=== PATIENT | female | born 1930 | race Caucasian/White ===

== ENCOUNTER → 2016-10-18 | Outpatient (CLI) | payer MEDICARE, BC | END | disposition home or self-care (01) | LOC: GMAJ 11:21 | PROVIDERS: ATTEND Family Medicine | DX: I50.9 Heart failure, unspecified (principal) ==

== ENCOUNTER → 2016-11-04 | Outpatient (CLI) | payer MEDICARE, BC | END | disposition home or self-care (01) | LOC: GMAJ 10:51 | PROVIDERS: ATTEND Family Medicine | DX: I50.9 Heart failure, unspecified (principal) ==

== ENCOUNTER → 2016-12-07 | Outpatient (CLI) | payer MEDICARE, BC | END | disposition home or self-care (01) | LOC: GMAJ 10:29 | PROVIDERS: ATTEND Family Medicine | DX: D50.9 Iron deficiency anemia, unspecified (principal) ==

== ENCOUNTER → 2017-04-04 | Outpatient (CLI) | payer MEDICARE, BC | END | disposition home or self-care (01) | LOC: GMAJ 16:31 | PROVIDERS: ATTEND Family Medicine | DX: D50.9 Iron deficiency anemia, unspecified (principal); E03.9 Hypothyroidism, unspecified ==

== ENCOUNTER 2017-06-10 11:44 | Observation (INO) | payer MEDICARE, BC ==
[2017-06-10] MEDS ORDERED: SODIUM CHLORIDE 0.9% (FLUSH) 10 ML SYG IV PRN ×2 (12:24→19:24)
--- NOTE | 2017-06-10 12:49 | ED.PDOC ---
History of Present Illness - General Chief Complaint: Neuro Symptoms/Deficits Stated Complaint: slurred speech,facial drooping Time Seen by Provider: 06/10/17 11:52 Source: patient, family - History of Present Illness Initial Comments: PT PRESENTS TO THE ED FROM THE CLINIC FOR INTERMITTENT EPISODES OF SLURRED SPEECH ACCOMPANIED BY INCREASED SOMNOLENCE OVER THE PAST MONTH. FAMILY STATES THAT SYMPTOMS HAVE BEEN MORE PRONOUNCED OVER THE PAST 1 DAY. PT DENIES, WEAKNESS OF EXTREMITIES OR PROBLEMS WITH COGNITION. Timing/Duration: getting worse, intermittent - OVER THE PAST MONTH Severity: moderate Improving Factors: nothing Worsening Factors: nothing Associated Symptoms: malaise Allergies/Adverse Reactions: Allergies NO KNOWN ALLERGY Allergy (Verified 03/27/14 18:34) Home Medications: Ambulatory Orders Aspirin [Antoinette Low Dose] 81 mg PO DAILY 02/26/14 Calcium Carb 500Mg-Vitamin D [Oscal 500 + D] 500 mg PO DAILY 02/26/14 Metoprolol Succinate [Metoprolol Succinate ER] 200 mg PO DAILY 02/26/14 Pravastatin Sodium 80 mg PO BEDTIME 02/26/14 Pregabalin [Lyrica] 75 mg PO BID 02/26/14 Levothyroxine Sodium [Synthroid] 0.025 mg PO BEDTIME #30 tab 03/04/14 Donepezil HCl [Aricept] 10 mg PO BEDTIME 03/20/14 Amlodipine Besylate 5 mg PO DAILY 06/10/17 Ferrous Gluconate [Ferate] 27 mg PO DAILY 06/10/17 Furosemide 40 mg PO BID 06/10/17 Olmesartan Medoxomil [Benicar] 40 mg PO DAILY 06/10/17 Review of Systems - Review of Systems Constitutional: Denies: chills, fever EENTM: Denies: nose congestion, throat pain Respiratory: Denies: cough, short of breath Cardiology: Denies: chest pain, palpitations Gastrointestinal/Abdominal: Denies: diarrhea, nausea, vomiting Musculoskeletal: Denies: joint pain, joint swelling Skin: Denies: dryness, lesions Neurological: Denies: numbness, paresthesia, tingling, weakness Endocrine: States: no symptoms reported Hematologic/Lymphatic: States: no symptoms reported Past Medical History (General) - Patient Medical History Hx Seizures: No Hx Stroke: Yes Hx Dementia: Yes Hx Asthma: No Hx of COPD: No Hx Cardiac Disorders: Yes - [place]/CABG Hx Congestive Heart Failure: Yes Hx Pacemaker: No Hx Hypertension: Yes Hx Diabetes: Yes Hx Gastroesophageal Reflux: Yes Hx MRSA: No Surgical History: appendectomy, cholecystectomy, coronary bypass surgery, Hysterectomy - Vaccination History Hx Influenza Vaccination: Yes Hx Pneumococcal Vaccination: Yes - Social History Hx Tobacco Use: No Hx Alcohol Use: No Hx Substance Use: No Hx Physical Abuse: No Hx Emotional Abuse: No Family Medical History - Family History Mother Family History: Unknown Living Status: Hx Family Hypertension: Yes Hx Family Stroke: Yes Hx Cardiac Disease: Yes Physical Exam - Physical Exam General Appearance: Alert, No apparent distress, Well Developed, Well Groomed, Well Hydrated Eye Exam: bilateral normal Ears, Nose, Throat: hearing grossly normal Neck: supple, normal inspection Respiratory: lungs clear, normal breath sounds, no respiratory distress Cardiovascular/Chest: no edema, no murmur, bradycardia Gastrointestinal/Abdominal: non tender, soft Back Exam: normal inspection Extremity: non-tender, normal inspection Neurologic: alert, normal mood/affect, oriented x 3, other - MILD FLATTENING OF L NASOLABIAL FOLD Skin Exam: normal color, warm/dry Progress - Progress Progress: 06/10/17 18:30 PT RESTING COMFORTABLY ON RE-EVAL, NO CHANGE IN SPEECH PATTERN. LABS AND DIAGNOSTIC STUDIES DISCUSSED WITH PT AND FAMILY. THEY AGREE WITH PLAN TO BE ADMITTED FOR FURTHER TREATMENT. - Results/Orders Results/Orders: 06/10/17 12:24 Telemetry .ONCE Sodium Chloride 0.9% (Flush) [Saline Flush Syringe] 10 ml IV PRN PRN 06/10/17 12:25 UA [URINALYSIS] Stat 06/10/17 12:30 EKG STAT 06/10/17 14:07 Sodium Chloride 0.9% 1000ML [Ns 1000 ml] 1,000 ml IVS .QD Laboratory Results - last 24 hr 06/10/17 06/10/17 06/10/17 13:13 13:13 13:13 WBC 8.3 RBC 4.80 Hgb 14.2 Hct 42.8 MCV 89.2 MCH 29.7 MCHC 33.3 RDW 15.6 H Plt Count 178 MPV 9.3 Absolute Neuts (auto) 4.90 Absolute Lymphs (auto) 2.00 Absolute Monos (auto) 0.90 H Absolute Eos (auto) 0.40 Absolute Basos (auto) 0.10 Neutrophils % 59.0 Lymphocytes % 24.7 Monocytes % 11.1 H Eosinophils % 4.4 Basophils % 0.8 PT 10.8 INR 0.960 PTT (SP) 30.8 Sodium 137 Potassium 5.0 Chloride 105 Carbon Dioxide 22 Anion Gap 15.0 BUN 88 H Creatinine 2.72 H BUN/Creatinine Ratio 32.4 H POC Glucose Random Glucose 138 H Serum Osmolality 302.9 H Calcium 9.7 Total Bilirubin 0.5 AST 35 ALT 29 Alkaline Phosphatase 60 Creatine Kinase 75 CK-MB (CK-2) 2.2 CK-MB (CK-2) % Not Reportable Troponin I 0.03 Serum Total Protein 8.2 Albumin 4.6 Globulin 3.6 H Albumin/Globulin Ratio 1.3 06/10/17 13:13 WBC RBC Hgb Hct MCV MCH MCHC RDW Plt Count MPV Absolute Neuts (auto) Absolute Lymphs (auto) Absolute Monos (auto) Absolute Eos (auto) Absolute Basos (auto) Neutrophils % Lymphocytes % Monocytes % Eosinophils % Basophils % PT INR PTT (SP) Sodium Potassium Chloride Carbon Dioxide Anion Gap BUN Creatinine BUN/Creatinine Ratio POC Glucose 130 H Random Glucose Serum Osmolality Calcium Total Bilirubin AST ALT Alkaline Phosphatase Creatine Kinase CK-MB (CK-2) CK-MB (CK-2) % Troponin I Serum Total Protein Albumin Globulin Albumin/Globulin Ratio - EKG/XRAY/CT EKG: Prasad - 49BPM, NL INTERVALS, NL AXIS, Sinus, nonspecific ST T wave Chg - T WAVE INVERSIONS IN LATERAL LEADS, Unchanged from - PREVIOUS FROM 2013 CT: HEAD- NO ACUTE FINDINGS PER RAD CT Ordered: Yes CT Interpretation Call Back: No Departure - Departure Clinical Impression: Dehydration, Acute kidney failure, Slurred speech Time of Disposition: 14:17 Disposition: Admit Patient Condition: Fair Home Medications: Ambulatory Orders Aspirin [Antoinette Low Dose] 81 mg PO DAILY 02/26/14 Calcium Carb 500Mg-Vitamin D [Oscal 500 + D] 500 mg PO DAILY 02/26/14 Metoprolol Succinate [Metoprolol Succinate ER] 200 mg PO DAILY 02/26/14 Pravastatin Sodium 80 mg PO BEDTIME 02/26/14 Pregabalin [Lyrica] 75 mg PO BID 02/26/14 Levothyroxine Sodium [Synthroid] 0.025 mg PO BEDTIME #30 tab 03/04/14 Donepezil HCl [Aricept] 10 mg PO BEDTIME 03/20/14 Amlodipine Besylate 5 mg PO DAILY 06/10/17 Ferrous Gluconate [Ferate] 27 mg PO DAILY 06/10/17 Furosemide 40 mg PO BID 06/10/17 Olmesartan Medoxomil [Benicar] 40 mg PO DAILY 06/10/17 Decision To Admit - Decistion To Admit Decision to Admit Reason: Admit from ER Decision to Admit Date: 06/10/17 Decision to Admit Time: 14:18 - CASE DISCUSSED WITH POLI KEYES NP WHO AGREES TO ADMIT PATIENT
--- NOTE | 2017-06-10 12:51 | CT ---
EXAM DESCRIPTION: CT head without contrast CLINICAL HISTORY: Facial droop. Slurred speech. CVA. COMPARISON: 03/20/2014 TECHNIQUE: Noncontrast spiral CT of the brain. This exam was performed according to our departmental dose-optimization program, which includes automated exposure control, adjustment of the mA and/or kV according to patient size and/or use of iterative reconstruction technique FINDINGS: Extensive white matter disease bilateral cerebral hemispheres with patchy and confluent decreased density worsened since previous CT. No diagnostic acute cortical infarction No intracranial hemorrhage or mass lesion. Atherosclerotic vascular calcifications of the cavernous internal carotid arteries. A small remote lacunar infarct right cerebellar hemisphere also seen on previous study No calvarial or skull base lesion. No paranasal sinus or mastoid fluid IMPRESSION: Extensive white matter disease, consistent with chronic microvascular ischemia. CT is insensitive for early evaluation of acute stroke. If there is clinical concern for acute ischemia, an MRI may be considered. Electronically signed by: Mil Moy MD 06/10/2017 12:49 PM CDT
[2017-06-10] MEDS ORDERED: SODIUM CHLORIDE 0.9% 1000ML 1,000 ML IVS PRN (14:07)
--- NOTE | 2017-06-10 15:04 | HP ---
SUPERVISING PHYSICIAN: Bennett To MD CHIEF COMPLAINT: Slurred speech. HISTORY OF PRESENT ILLNESS: Ms. Willett is an 87 year-old female patient who presented to the Emergency Department directly from the clinic today for intermittent episodes of some slurred speech. The family reports that her symptoms including the slurred speech have lizbeth increasing over the last day, however, the patient denied any weakness or any other difficulties with cognition. The patient does note that she has been sleeping more than 12 to 14 hours a day. Laboratory studies in the Emergency Department showed that she had a decreased renal function with a creatinine of 2.72. Review of previous medical records and laboratory showed her creatinine baseline is around 1.5 to 1.8. It was also noted that she had a serum osmolality of 302. She also had a urinalysis in the clinic today and review of that record indications symptomatic bacteruria with 3 to 5 white cells, 1 to 3 RBCs and a few epithelials. TSH is also noted to be elevated at 6.86. Radiographic studies included a head CT without contrast and per radiology interpretation showed extensive white matter disease consistent with chronic macrovascular ischemia. Dr. Plascencia, Emergency Room physician, requested the patient be placed in observation for dehydration and close neurological monitoring. No significant neurological deficits were elicited or noted on assessment in the Emergency Department per Dr. Plascencia initially. It was of note that she initially hydrated with renal function being increased compared to previous days. There was concern that possibly the is significantly dehydrated and showing a falsely elevated sodium and possibly is symptomatic from hyponatremia. Also, there was concern that the patient was again having TIAs in the past and warrants close observation at for neurological assessment as well. She was started on IV fluids inhalation therapy with normal saline and placed in observation on the medical/surgical floor in stable condition. PAST MEDICAL HISTORY: 1. Hypertension. 2. Hyperlipidemia. 3. Previous myocardial infarction in 1999. 4. Carotid artery stenosis but no recent carotid study noted for review. 5. Coronary artery disease. 6. Peripheral vascular disease. 6. Type 2 diabetes mellitus. 7. Alzheimer's disease. 8. 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 9. 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 10. Congestive heart failure with diastolic dysfunction with last echocardiogram noted to be on June 03, 2017 with ejection fraction of 55%, again with a grade 2 diastolic dysfunction. PAST SURGICAL HISTORY: 1. Appendectomy. 2. Coronary artery bypass graft. 3. Cholecystectomy. 4. Coronary artery stent placement. 5. Hysterectomy. 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 CURRENT MEDICATIONS: 1. Lyrica 75 mg twice a day. 2. Pravastatin 80 mg at bedtime. 3. Benicar 40 mg daily. 4. Metoprolol Succinate extended release 200 mg daily. 5. Synthroid 0.025 mg at bedtime. 6. Lasix 40 mg twice a day. 7. Ferate 27 mg daily. 8. Aricept 10 mg at bedtime. 9. Os-Bruno 500 plus D daily. 10. Aspirin 81 mg daily. 11. Amlodipine 5 mg daily. ALLERGIES: NO KNOWN DRUG ALLERGIES. FAMILY HISTORY: Father secondary to cerebrovascular accident. Mother with myocardial infarction. SOCIAL HISTORY: The patient is retired. She lives in [place] with her . 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 She has no history of tobacco, drug use or alcohol use. REVIEW OF SYSTEMS: CONSTITUTIONAL: Positive for fatigue. She notes that she wants to sleep all day and falls asleep easily while eating. She denies any chills, fever or intentional weight loss. HEENT: Denies any nasal congestion, sore throat or headaches. RESPIRATORY: Negative for cough, dyspnea. CARDIOVASCULAR: Has a history of previous TIAs. Denies chest pains, palpitations or syncopal episodes. GASTROINTESTINAL: Denies constipation, diarrhea or abdominal pain or nausea or vomiting. GENITOURINARY: Denies dysuria or hematuria or any other urinary symptoms. NEUROLOGICAL: Positive for delayed speech with some slurred, patient states she has noted in the past, yesterday she had some face drooping when she smiles but denies any ataxia or headaches. PHYSICAL EXAMINATION: VITAL SIGNS: In the Emergency Room temperature was 96.3, pulse 51, blood pressure initially 98/56, however, prior to admission to the medical/surgical floor, blood pressure went up to 208/80. Saturation 93% on room air with respirations 16. Admission weight 60.5 kg. GENERAL: The patient appears to be in no acute distress, well-groomed but does appear tired and somewhat looks dehydrated. HEENT: Tympanic membranes clear bilateral. Oropharynx is pink with mucous membranes being dry with no lesions. NECK: Non-tender, full range of motion with no jugular venous distention. CHEST: Lungs clear to auscultation without any rhonchi, rales, or wheezes. CARDIOVASCULAR: Regular rate and rhythm without appreciable murmurs, rubs, or gallops. Showed a bradycardic rhythm on the monitor. ABDOMEN: Soft, non-tender, positive bowel sounds. EXTREMITIES: No cyanosis, clubbing, or edema. NEUROLOGIC: She is alert and oriented x 3. Facial features were generally symmetrical but there was some [id number] mild flattening of the left nasolabial fold, no obvious drooping. Extraocular movements were within normal limits. No nystagmus was noted. There was no notable ataxia. [id number] was within normal limits. LABORATORY: CBC showed a white count of 8,300 with hemoglobin of 14.2, hematocrit 42.8, platelet count 178,000, differential shows to be within normal limits. Coagulation studies showed left PT/PTT. Chemistries showed normal electrolytes with sodium of 137, potassium 5.0, BUN 88, creatinine 2.72, glucose 130 with osmolality of 302. Liver functions showed to be within normal limits. Calcium within normal limits.Troponin 0.03. Urinalysis on admission was pending but review of medical records from laboratory studies performed today in the clinic showed that she had a urinalysis completed there that showed trace of blood, trace of leukocytes with microscopic showing 3 to 5 WBC, 1 to 3 RBC with a few epithelials with 2+ bacteria. RADIOLOGY: Studies completed included a CT of the head without contrast and per radiology interpretation was extensive white matter disease consistent with chronic microvascular ischemia. EKG showed a bradycardic rhythm of [address]-wave changes, with some T-wave inversions noted in lateral leads unchanged from previous EKG in 2014. ASSESSMENT: 1. Dehydration secondary to poor oral intake. 2. Acute kidney failure as noted with elevated creatinine, BUN, possibly secondary' to prerenal azotemia from underlying dehydration also contributing to some of her slurred speech. 3. Urinary tract infection possibly exacerbated the slurred speech from an infectious encephalopathy. 4. History of previous TIA with carotid artery disease and carotid stenosis with the patient having some slurred speech prior to arrival with concern for a possible additional TIA event with the patient the patient on aspirin , statin. 5. Hypertension. 6. Diabetes mellitus type 2. 7. Hypothyroidism with elevated TSH on thyroid supplementation possibly contributing to some of her underlying clearing speech and increased hypersomnia. 8. Urinary tract infection with urinary culture pending. PLAN: The patient will be placed in observation tonight. Initiation of IV fluids in the Emergency Room to be continued on the Floor in efforts to improve renal function and fluid status. She will be on sliding scale as per protocol. She will be on DVT prophylaxis per protocol. Will resume her verifications once they have been updated and verified. Will start her on Rocephin one gram every 24 hours from urinary tract infection awaiting urine culture results. We did check on the specimen from the clinic, this was not cultured, therefore will have to resubmit a urine after admission and follow those culture results awaiting treatment empirically and further target antibiotic therapy once results are available. Anticipate length of stay to be 1 to 2 days, hopefully will be able to discharge tomorrow as she improves on her hydration status. Again, there are concerns that she could possibly have some hyponatremia as she is hemoconcentrated from dehydration. Will plan to utilize normal saline until repeat laboratory studies in the morning to include CBC and BMP. She will have every 4 hours neurological checks. Again, will anticipate hopefully discharge tomorrow and once discharged, she will need to followup in the outpatient setting on Tuesday for MRI and further study of her carotids. Until discharge, we will continue to monitor closely and treat appropriately. #[id number] [facility]
[2017-06-10] MEDS ORDERED: cloNIDine HCL 0.1 MG TAB PO ONE (18:36)
[2017-06-10] MEDS: SODIUM CHLORIDE 0.9% 1000ML 1,000 ML IVS PRN (19:26)
[2017-06-10] MEDS ORDERED: IV SET AND CAP CHANGE INJ INJ SCH (19:30)
[2017-06-10] MEDS ORDERED: ENOXAPARIN SODIUM 40 MG/0.4 ML SYG SUBCU SCH (19:30)
[2017-06-10] MEDS: PREGABALIN 75 MG CAP PO SCH (21:48)
[2017-06-10] MEDS: DONEPEZIL HCL 5 MG TAB PO SCH (21:48)
--- NOTE | 2017-06-10 22:43 | PCM.CORE ---
Physician DVT/VTE - Nurse DVT Assessment & Total Each Risk Factor Represents 3 Points: Age over 75 years, Family Hx thrombosis, Medical PT with Hx of MD, CHF, Severe infection/sepsis DVT Assessment Score: 9 - 5 or more Very High Risk Treatments: Early Ambulation *, Sequential Compression Device Pharmacological: Enoxaparin 40mg SQ Daily
[2017-06-10] MEDS ORDERED: SODIUM CHL 0.9% 50ML MIN-BAG+ 50 ML IVPB ONE (23:16)
[2017-06-10] MEDS ORDERED: cefTRIAXone SODIUM 1 GM VIAL ONE (23:16)
[2017-06-10] MEDS ORDERED: INSULIN LISPRO 100 UNITS/ML PEN SUBCU ONE (23:44)
[2017-06-10] MEDS: cefTRIAXone SODIUM 1 GM in SODIUM CHL 0.9% 50ML MIN-BAG+ 50 ML IVPB SCH (23:55)
[2017-06-11] MEDS: SODIUM CHLORIDE 0.9% 1000ML 1,000 ML IVS PRN ×2 (05:06→17:43)
[2017-06-11] MEDS ORDERED: METOPROLOL SUCCINATE XL 100 MG TAB PO ONE (07:36)
[2017-06-11] MEDS ORDERED: FERROUS GLUCONATE 325 MG TAB PO SCH (08:00)
[2017-06-11] MEDS ORDERED: VALSARTAN 80 MG TAB ONE (08:12)
[2017-06-11] MEDS: METOPROLOL SUCCINATE XL 100 MG TAB PO SCH (08:15)
[2017-06-11] MEDS: amLODIPine BESYLATE 5 MG TAB PO SCH (08:15)
[2017-06-11] MEDS: CALCIUM CARBONATE-VITAMIN D 500 MG TAB PO SCH (08:15)
[2017-06-11] MEDS: ASPIRIN EC 81 MG TAB PO SCH (08:15)
[2017-06-11] MEDS: PREGABALIN 75 MG CAP PO SCH ×2 (08:15→20:53)
[2017-06-11] MEDS: VALSARTAN 80 MG TAB PO SCH (08:19)
[2017-06-11] MEDS: FERROUS GLUCONATE 325 MG TAB PO SCH (08:20)
[2017-06-11] MEDS ORDERED: SODIUM CHL 0.9% 50ML MIN-BAG+ 50 ML IVPB ONE (19:46)
[2017-06-11] MEDS ORDERED: ENOXAPARIN SODIUM 40 MG/0.4 ML SYG SUBCU ONE (19:46)
[2017-06-11] MEDS ORDERED: LEVOTHYROXINE SODIUM 0.025 MG TAB ONE (19:46)
[2017-06-11] MEDS ORDERED: cefTRIAXone SODIUM 1 GM VIAL ONE (19:46)
[2017-06-11] MEDS ORDERED: PRAVASTATIN SODIUM 20 MG TAB ONE (19:46)
[2017-06-11] MEDS: DONEPEZIL HCL 5 MG TAB PO SCH (20:52)
[2017-06-11] MEDS ORDERED: ENOXAPARIN SODIUM 40 MG/0.4 ML SYG SUBCU SCH (21:00)
[2017-06-11] MEDS ORDERED: PRAVASTATIN SODIUM 20 MG TAB PO SCH (21:00)
[2017-06-11] MEDS ORDERED: LEVOTHYROXINE SODIUM 0.025 MG TAB PO SCH (21:00)
[2017-06-11] MEDS: cefTRIAXone SODIUM 1 GM in SODIUM CHL 0.9% 50ML MIN-BAG+ 50 ML IVPB SCH (23:04)
[2017-06-12] MEDS: SODIUM CHLORIDE 0.9% 1000ML 1,000 ML IVS PRN (06:15)
[2017-06-12] MEDS ORDERED: SODIUM CHLORIDE 0.45% 1000ML 1,000 ML IVS PRN (07:34)
[2017-06-12] MEDS: CALCIUM CARBONATE-VITAMIN D 500 MG TAB PO SCH (07:59)
[2017-06-12] MEDS: FERROUS GLUCONATE 325 MG TAB PO SCH (08:00)
[2017-06-12] MEDS: amLODIPine BESYLATE 5 MG TAB PO SCH (08:35)
[2017-06-12] MEDS: PREGABALIN 75 MG CAP PO SCH (08:35)
[2017-06-12] MEDS: ASPIRIN EC 81 MG TAB PO SCH (08:35)
[2017-06-12] MEDS: VALSARTAN 80 MG TAB PO SCH (08:36)
[2017-06-12] MEDS: METOPROLOL SUCCINATE XL 100 MG TAB PO SCH (08:36)
[2017-06-12] MEDS ORDERED: SODIUM CHL 0.9% 50ML MIN-BAG+ 50 ML IVPB ONE (10:29)
[2017-06-12] MEDS ORDERED: cefTRIAXone SODIUM 1 GM VIAL ONE (10:30)
[2017-06-12] MEDS: cefTRIAXone SODIUM 1 GM in SODIUM CHL 0.9% 50ML MIN-BAG+ 50 ML IVPB SCH (10:40)
[2017-06-12 11:27] VITALS: BP 181/64; TEMP 97.2; O2SAT 94
== END 2017-06-12 11:45 | disposition home or self-care (01) ==
LOC: ER 11:44 → MS 15:02 → UNDOADMOB 15:02
PROVIDERS: ADMIT Nurse Practitioner Family; ATTEND Nurse Practitioner Family
DX: E86.0 Dehydration (principal); N17.9 Acute kidney failure, unspecified; N39.0 Urinary tract infection, site not specified; R47.81 Slurred speech; I65.29 Occlusion and stenosis of unspecified carotid artery; I11.0 Hypertensive heart disease with heart failure; I50.32 Chronic diastolic (congestive) heart failure; E11.9 Type 2 diabetes mellitus without complications; E03.9 Hypothyroidism, unspecified; G30.9 Alzheimer's disease, unspecified; F02.80 Dementia in other diseases classified elsewhere, unspecified severity, without behavioral disturbance, psychotic disturbance, mood disturbance, and anxiety; I25.10 Atherosclerotic heart disease of native coronary artery without angina pectoris; E78.5 Hyperlipidemia, unspecified; I25.2 Old myocardial infarction; Z86.73 Personal history of transient ischemic attack (TIA), and cerebral infarction without residual deficits; Z79.82 Long term (current) use of aspirin; Z79.899 Other long term (current) drug therapy; Z95.1 Presence of aortocoronary bypass graft; Z95.5 Presence of coronary angioplasty implant and graft; Z90.49 Acquired absence of other specified parts of digestive tract; Z90.710 Acquired absence of both cervix and uterus; Z82.3 Family history of stroke; Z82.49 Family history of ischemic heart disease and other diseases of the circulatory system
CPT/HCPCS: 36415 ×3; 70450; 80048 ×2; 80053; 80061; 81001; 82550; 82553; 82948; 83036; 83735; 84443; 84484; 85025 ×3; 85610; 85730; 93005; 94760 ×8; 96365; 96366; 96372 ×2; 96376; 97116; 97162; 99284; G0378; G8978; G8979; G8980; J0696 ×3; J1650 ×2; J7030 ×4; J7050 ×3

== ENCOUNTER → 2017-06-15 | Outpatient (CLI) | payer MEDICARE, BC ==
--- NOTE | 2017-06-15 16:54 | MRI ---
EXAM DATE: 06/15/2017 8:12 AM CDT. PROCEDURE: MR BRAIN WITHOUT IV CONTRAST. INDICATION: MIXED RECEPTIVE, EXPRESSIVE LANGUAGE DISORDER. COMPARISON: CT head 06/10/2017. TECHNIQUE: Multiplanar multisequence images of the brain were acquired without the administration of intravenous contrast. FINDINGS: Small curvilinear band of restricted diffusion within the right frontal lobe periventricular white matter compatible with acute infarct. No acute intracranial hemorrhage. No mass, mass effect, or midline shift. Confluent subcortical, periventricular, deep white matter T2/FLAIR hyperintensities compatible with chronic microvascular angiopathy. Old lacunar infarcts of the bilateral cerebellar hemispheres. Mild generalized brain volume loss. No hydrocephalus. Internal carotid and vertebrobasilar flow voids are identified. Sequela bilateral cataract surgery. Mild mucosal thickening scattered throughout the paranasal sinuses. Small right mastoid effusion or inflammation. Unremarkable calvarium. IMPRESSION: Small acute infarct of the right frontal reyes radiata. Advanced chronic microvascular angiopathy. Mild generalized brain volume loss. Critical findings discussed with Emilia Upton RN, by Bennett Andrade MD at 06/15/2017 4:52 PM CDT by phone. Electronically signed by: Bennett Andrade MD 06/15/2017 4:53 PM CDT
== END | disposition home or self-care (01) ==
LOC: MRI 09:36
PROVIDERS: ATTEND Family Medicine
DX: F80.2 Mixed receptive-expressive language disorder (principal)

== ENCOUNTER 2018-08-19 14:01 | Emergency (ER) | payer MEDICARE, BC ==
[2018-08-19] MEDS ORDERED: NEOMYCIN-BACITRACIN-POLYMYXIN 0.9 GM UD TOP ONE (14:22)
[2018-08-19 14:23] VITALS: TEMP 97.6
--- NOTE | 2018-08-19 14:42 | ED.PDOC ---
History of Present Illness - General Chief Complaint: Trauma Stated Complaint: s/p fall Time Seen by Provider: 08/19/18 14:34 Source: patient, family - Exam Limitations: no limitations - History of Present Illness Initial Comments: Ibeth Willett 88 y/o female brought by family after she slipped and fell at [employer] restaurant head hit the table top and with bleeding noted on the left side of head.Initially EMS was about to pick her up then declined wants to finish eating her pizza.But later on want to go home apply ointment but was persuaded to come to ER to get checked.No LOC,no N/V,no blurry vision,no neck pain ,no headaches,dizziness or other pain anywhere else.Remembers incident.She was noted to be walking w/o assistance on arrival at ER. Occurred: just prior to arrival Severity: moderate Pain Location: none Method of Injury: fall Improving Factors: nothing Worsening Factors: nothing Loss of Consciousness: no loss of consciousness Associated Symptoms (Fall): denies symptoms Allergies/Adverse Reactions: Allergies NO KNOWN ALLERGY Allergy (Verified 03/27/14 18:34) Home Medications: Ambulatory Orders Aspirin [Antoinette Low Dose] 81 mg PO DAILY 02/26/14 Calcium Carb 500Mg-Vitamin D [Oscal 500 + D] 500 mg PO DAILY 02/26/14 Metoprolol Succinate [Metoprolol Succinate ER] 200 mg PO DAILY 02/26/14 Pravastatin Sodium 80 mg PO BEDTIME 02/26/14 Pregabalin [Lyrica] 75 mg PO BID 02/26/14 Levothyroxine Sodium [Synthroid] 0.025 mg PO BEDTIME #30 tab 03/04/14 Donepezil HCl [Aricept] 10 mg PO BEDTIME 03/20/14 Amlodipine Besylate 5 mg PO DAILY 06/10/17 Ferrous Gluconate [Ferate] 27 mg PO DAILY 06/10/17 Olmesartan Medoxomil [Benicar] 40 mg PO DAILY 06/10/17 Ciprofloxacin HCl 250 mg PO BID #3 tab 06/12/17 Furosemide 40 mg PO BID #0 06/12/17 Review of Systems - Review of Systems Skin: States: see HPI All other Systems: Reviewed and Negative, No Change from Baseline Past Medical History (General) - Patient Medical History Hx Seizures: No Hx Stroke: Yes Hx Dementia: Yes Hx Asthma: No Hx of COPD: No Hx Cardiac Disorders: Yes - [place]/CABG Hx Congestive Heart Failure: Yes Hx Pacemaker: No Hx Hypertension: Yes Hx Diabetes: Yes Hx Gastroesophageal Reflux: Yes Hx MRSA: No Surgical History: coronary bypass surgery - Vaccination History Hx Tetanus, Diphtheria Vaccination: - UNKNOWN Hx Influenza Vaccination: Yes Hx Pneumococcal Vaccination: Yes - Social History Hx Tobacco Use: No Hx Alcohol Use: No Hx Substance Use: No Hx Physical Abuse: No Hx Emotional Abuse: No - Activities of Daily Living Grooming Ability: Independent Eating (Feeding) Ability: Independent Toileting Ability: Independent Family Medical History - Family History Mother Family History: Unknown Living Status: Hx Family Hypertension: Yes Hx Family Stroke: Yes Hx Cardiac Disease: Yes Physical Exam - Physical Exam General Appearance: Alert, Comfortable, No apparent distress Head Injury: other - scalp laceration left parieto occipital area Eye Exam: left other - pterygium left eye, bilateral normal ENT Exam: hearing grossly normal, no evidence of ENT injury, no dental injury Neck Exam: non-tender, full range of motion, normal alignment, normal inspection Cardiovascular/Respiratory: regular rate, rhythm, no M/R/G, normal peripheral pulses Gastrointestinal/Abdominal: non tender, soft, no organomegaly Back Exam: no CVA tenderness, no vertebral tenderness Extremity Exam: no evidence of injury, non-tender, no pedal edema Neurologic: alert, oriented x 3, other - speech fluent Skin Exam: normal color, warm/dry - [place] Coma Score Best Eye Response ([place]): (4) open spontaneously Best Verbal Response ([place]): (5) oriented Best Motor Response ([place]): (6) obeys commands [place] Total: 15 Progress - Progress Progress: 08/19/18 14:46 Vital Signs - 8 hr 08/19/18 14:20 Temperature 97.6 F Pulse Rate [ 107 H Right Brachial] Respiratory 20 Rate Blood Pressure 213/98 [Right Arm] O2 Sat by Pulse 92 L Oximetry Procedures - Laceration/Wound Repair Head Wound Length (cm): 2.5 - scalp-blleding noted Wound's Depth, Shape: superficial, linear Wound Explored: no foreign body removed Irrigated w/ Saline (cc's): 30 Wound Repaired With: daniella Number of Sutures: 5 Layer Closure?: No Departure - Departure Clinical Impression: Fall against object Laceration of scalp Qualifiers: Encounter type: initial encounter Qualified Code(s): S01.01XA - Laceration without foreign body of scalp, initial encounter Hypertension Qualifiers: Hypertension type: unspecified Qualified Code(s): I10 - Essential (primary) hypertension Time of Disposition: 14:49 Disposition: Discharge to Home or Self Care Condition: Fair Departure Forms: ED Discharge - Pt. Copy, Patient Portal Self Enrollment Instructions: Laceration Repair With [place] (DC), Minor Head Injury (DC) Referrals: Bennett To MD [Primary Care Provider] - 1-2 Weeks Home Medications: Ambulatory Orders Aspirin [Antoinette Low Dose] 81 mg PO DAILY 02/26/14 Calcium Carb 500Mg-Vitamin D [Oscal 500 + D] 500 mg PO DAILY 02/26/14 Metoprolol Succinate [Metoprolol Succinate ER] 200 mg PO DAILY 02/26/14 Pravastatin Sodium 80 mg PO BEDTIME 02/26/14 Pregabalin [Lyrica] 75 mg PO BID 02/26/14 Levothyroxine Sodium [Synthroid] 0.025 mg PO BEDTIME #30 tab 03/04/14 Donepezil HCl [Aricept] 10 mg PO BEDTIME 03/20/14 Amlodipine Besylate 5 mg PO DAILY 06/10/17 Ferrous Gluconate [Ferate] 27 mg PO DAILY 06/10/17 Olmesartan Medoxomil [Benicar] 40 mg PO DAILY 06/10/17 Ciprofloxacin HCl 250 mg PO BID #3 tab 06/12/17 Furosemide 40 mg PO BID #0 06/12/17 Additional Instructions: May take Tylenol 500 mg every 6 hours for pain;Return to ER as needed;Removal of daniella 24 Aug 2018 [facility]
[2018-08-19] MEDS ORDERED: cloNIDine HCL 0.1 MG TAB PO ONE (14:44)
[2018-08-19 15:22] VITALS: BP 186/95; O2SAT 93
== END 2018-08-19 15:23 | disposition home or self-care (01) ==
LOC: ER 14:01
DX: S01.01XA Laceration without foreign body of scalp, initial encounter (principal); I11.0 Hypertensive heart disease with heart failure; I50.9 Heart failure, unspecified; F03.90 Unspecified dementia, unspecified severity, without behavioral disturbance, psychotic disturbance, mood disturbance, and anxiety; I25.2 Old myocardial infarction; E11.9 Type 2 diabetes mellitus without complications; K21.9 Gastro-esophageal reflux disease without esophagitis; W01.198A Fall on same level from slipping, tripping and stumbling with subsequent striking against other object, initial encounter; Y92.511 Restaurant or cafe as the place of occurrence of the external cause; Z95.1 Presence of aortocoronary bypass graft; Z79.899 Other long term (current) drug therapy; Z79.82 Long term (current) use of aspirin

== ENCOUNTER → 2019-03-16 | Outpatient (CLI) | payer MEDICARE, BC | LOC: BFHOS 15:22 | PROVIDERS: ATTEND Family Medicine | DX: R50.9 Fever, unspecified (principal); R30.0 Dysuria ==

== ENCOUNTER → 2019-03-19 | Outpatient (CLI) | payer MEDICARE, BC ==
--- NOTE | 2019-03-20 12:18 | US ---
EXAM DESCRIPTION: Venous,Lower Extremity LT: ULTRASOUND. CLINICAL HISTORY: Possible DVT COMPARISON: None Available. TECHNIQUE: Mims-scale and doppler sonographic evaluation of the deep venous system of the left lower extremity. FINDINGS: Doppler evaluation shows normal color flow and normal phasicity and augmentation of the left common femoral vein, femoral vein, popliteal vein, greater saphenous vein, peroneal, and posterior tibial vein. The left lower extremity deep veins were completely compressible; normal occlusion with transducer pressure. Mims-scale survey showed no echogenic thrombus within these veins. IMPRESSION: 1. Duplex ultrasound evaluation of the left lower extremity deep venous system showing no evidence of thrombosis. Electronically signed by: Woody Suarez MD 03/20/2019 12:16 PM CDT
== END ==
LOC: US 11:03
PROVIDERS: ATTEND Family Medicine
DX: M79.662 Pain in left lower leg (principal); I13.0 Hypertensive heart and chronic kidney disease with heart failure and stage 1 through stage 4 chronic kidney disease, or unspecified chronic kidney disease; N18.9 Chronic kidney disease, unspecified

== ENCOUNTER 2020-09-10 18:22 | Inpatient (IN) | payer MEDICARE, BC ==
--- NOTE | 2020-09-10 18:41 | ED.PDOC ---
History of Present Illness - General Chief Complaint: Respiratory Problem Time Seen by Provider: 09/10/20 18:40 - History of Present Illness Initial Comments: 89-year-old female on hospice with DNR in place presents with daughter to ED complaining of several days of progressing fatigue and diarrhea. Daughter states patient tested positive at home for COVID-19 today. Patient was instructed to come to ED by her PCP for evaluation for admission and remdesivir. Patient denies any chest pain, nausea/vomiting, headache, body aches, and/or acute changes in urination. Associated cough and intermittent dyspnea. Denies history of similar symptoms. Denies alleviating/aggravating factors. No other signs, symptoms, complaints at this time. Daughter also notifies that within the past week or so patient has had a period where she had some left facial droop but is since resolved. Due to patient being on hospice and DNR there is no need for further evaluation for potential stroke as no intervention would be performed. Allergies/Adverse Reactions: Allergies NO KNOWN ALLERGY Allergy (Verified 03/27/14 18:34) Home Medications: Ambulatory Orders Aspirin [Antoinette Low Dose] 81 mg PO DAILY 02/26/14 Calcium Carb 500Mg-Vitamin D [Oscal 500 + D] 500 mg PO DAILY 02/26/14 Metoprolol Succinate [Metoprolol Succinate ER] 200 mg PO DAILY 02/26/14 Pravastatin Sodium 80 mg PO BEDTIME 02/26/14 Pregabalin [Lyrica] 75 mg PO BID 02/26/14 Levothyroxine Sodium [Synthroid] 0.025 mg PO BEDTIME #30 tab 03/04/14 Donepezil HCl [Aricept] 10 mg PO BEDTIME 03/20/14 Amlodipine Besylate 5 mg PO DAILY 06/10/17 Ferrous Gluconate [Ferate] 27 mg PO DAILY 06/10/17 Olmesartan Medoxomil [Benicar] 40 mg PO DAILY 06/10/17 Ciprofloxacin HCl [Ciprofloxacin Hydrochlori] 250 mg PO BID #3 tab 06/12/17 Furosemide 40 mg PO BID #0 06/12/17 Review of Systems - Review of Systems Constitutional: Denies: chills, fever EENTM: Denies: nose congestion, throat pain Respiratory: States: cough, short of breath Cardiology: Denies: chest pain, edema Gastrointestinal/Abdominal: States: diarrhea. Denies: abdominal pain, constipation, nausea, vomiting Genitourinary: Denies: dysuria, frequency Musculoskeletal: Denies: muscle pain, neck pain Skin: Denies: change in color, rash Neurological: Denies: headache, weakness Hematologic/Lymphatic: Denies: easy bruising Past Medical History (General) - Patient Medical History Hx Seizures: No Hx Stroke: Yes Hx Dementia: Yes Hx Asthma: No Hx of COPD: No Hx Cardiac Disorders: Yes - PR/CABG Hx Congestive Heart Failure: Yes Hx Pacemaker: No Hx Hypertension: Yes Hx Diabetes: Yes Hx Gastroesophageal Reflux: Yes Hx MRSA: No - Vaccination History Hx Tetanus, Diphtheria Vaccination: - UNKNOWN Hx Influenza Vaccination: Yes Hx Pneumococcal Vaccination: Yes - Social History Hx Tobacco Use: No Hx Alcohol Use: No Hx Substance Use: No Hx Physical Abuse: No Hx Emotional Abuse: No Family Medical History - Family History Mother Family History: Unknown Living Status: Hx Family Hypertension: Yes Hx Family Stroke: Yes Hx Cardiac Disease: Yes Physical Exam - Physical Exam General Appearance: Alert, Comfortable, No apparent distress Eye Exam: bilateral normal, bilateral other - no scleral icterus Ears, Nose, Throat: normal ENT inspection Neck: supple, normal inspection Respiratory: respiratory distress, crackles, rales, other - hypoxic on room air, no tachypnea, no accessory muscle use Cardiovascular/Chest: regular rate, rhythm, no edema, no JVD, no murmur Gastrointestinal/Abdominal: normal bowel sounds, non tender, soft Back Exam: no CVA tenderness Extremity: normal inspection, no pedal edema Neurologic: alert, normal mood/affect, other - no facial droop, oriented at baseline Skin Exam: normal color, warm/dry, other - no rash, no pallor, no central cyanosis noted Progress - Progress Progress: Misael Adams DO Emergency Medicine Physician [facility][id number] Appropriate PPE of surgical mask, gown, gloves, and eye protection (if encounter >5 minutes) utilized with every patient encounter; in accordance with hospital policy. Presents for COVID 19 pneumonia with acute respiratory failure and hypoxia. I will perform imaging, labs, ekg, provide appropriate pharmacotherapy, and continue to monitor/reassess. Dispo will depend on imaging, EKG, lab results and overall course in ED; however, admission is expected at PCP's request. Rechecked pt with family member at bedside. NAD, VSS, and stable on supplemental oxygen. I have discussed radiology/EKG/lab results, my clinical impression, and diagnosis. I have discussed need for admission for further management and daughter agrees. Pt and family member voice understanding, agree with plan, and all questions answered. 1956 Consulted with hospitalist Herrera Carr, and discussed patient's case in ED along with current findings. He will discuss case with patient's PCP for admission. 2011 Hospitalist has returned call and accepts patient for admission after discussing case with patient's PCP. - Results/Orders Results/Orders: @1919:, Junctional rhythm @53, normal axis, QTC 506, QRS within normal limits, no ST elevations, nonspecific ST-T wave changes. No STEMI. 09/10/20 18:49 IV Care:Saline Lock per Protoc QSHIFT IV:Start .ONCE 09/10/20 19:00 EKG STAT 09/10/20 19:30 EKG STAT 09/10/20 19:52 ED Intent to Admit Routine Laboratory Results - last 24 hr 09/10/20 09/10/20 09/10/20 19:00 19:00 19:00 WBC 4.8 RBC 4.28 Hgb 12.1 Hct 37.0 MCV 86.3 MCH 28.2 MCHC 32.7 L RDW 14.2 Plt Count 217 MPV 7.8 Absolute Neuts (auto) 2.80 Absolute Lymphs (auto) 1.40 Absolute Monos (auto) 0.60 Absolute Eos (auto) 0.00 Absolute Basos (auto) 0.10 Neutrophils % 57.8 Lymphocytes % 28.9 Monocytes % 11.4 H Eosinophils % 0.8 L Basophils % 1.1 D-Dimer, Quantitative 890.0 H* Sodium 131 L Potassium 4.9 Chloride 101 Carbon Dioxide 18 L Anion Gap 16.9 BUN 75 H Creatinine 3.35 H BUN/Creatinine Ratio 22.4 H Random Glucose 110 H Serum Osmolality 285.6 Calcium 8.4 Total Bilirubin 0.8 AST 22 ALT 11 Alkaline Phosphatase 61 Serum Total Protein 6.9 Albumin 3.5 Globulin 3.4 Albumin/Globulin Ratio 1.0 L EXAM: XR Chest, 1 View CLINICAL HISTORY: SOB TECHNIQUE: Frontal view of the chest. COMPARISON: 03/20/2014 FINDINGS: Lungs: Bilateral interstitial infiltrates present with mild superimposed patchy airspace consolidation in both lower lung zones. Pleural space: No pneumothorax. No pleural effusion. Heart: Stable cardiac shadow. Mediastinum: No abnormality noted. Bones/joints: No osseous destruction or sclerosis noted. IMPRESSION: Bilateral interstitial and mild patchy airspace disease. Consider pneumonia including viral etiology and alveolar edema. Electronically signed by: Fiorella Linares MD 09/10/2020 8:42 PM MYSQL DATABASE DEVELOPER Vital Signs - 24 hr 09/10/20 09/10/20 09/10/20 19:09 20:00 21:00 Temperature 98.0 F Pulse Rate [ 53 L 59 L 55 L left brachial] Respiratory 16 16 16 Rate Blood Pressure 193/66 190/76 171/55 [right brachial ] O2 Sat by Pulse 85 L Oximetry 09/10/20 22:00 Temperature 98.2 F Pulse Rate [ 60 left brachial] Respiratory 16 Rate Blood Pressure 187/79 [right brachial ] O2 Sat by Pulse 96 Oximetry Departure - Departure Clinical Impression: Acute respiratory failure with hypoxia, Hospice care, Pneumonia due to COVID-19 virus, DNR (do not resuscitate) ARF (acute renal failure) Qualifiers: Acute renal failure type: unspecified Qualified Code(s): N17.9 - Acute kidney failure, unspecified Time of Disposition: 19:51 Disposition: Admit Patient Condition: Poor Home Medications: Ambulatory Orders Aspirin [Antoinette Low Dose] 81 mg PO DAILY 02/26/14 Calcium Carb 500Mg-Vitamin D [Oscal 500 + D] 500 mg PO DAILY 02/26/14 Metoprolol Succinate [Metoprolol Succinate ER] 200 mg PO DAILY 02/26/14 Pravastatin Sodium 80 mg PO BEDTIME 02/26/14 Pregabalin [Lyrica] 75 mg PO BID 02/26/14 Levothyroxine Sodium [Synthroid] 0.025 mg PO BEDTIME #30 tab 03/04/14 Donepezil HCl [Aricept] 10 mg PO BEDTIME 03/20/14 Amlodipine Besylate 5 mg PO DAILY 06/10/17 Ferrous Gluconate [Ferate] 27 mg PO DAILY 06/10/17 Olmesartan Medoxomil [Benicar] 40 mg PO DAILY 06/10/17 Ciprofloxacin HCl [Ciprofloxacin Hydrochlori] 250 mg PO BID #3 tab 06/12/17 Furosemide 40 mg PO BID #0 06/12/17 Decision To Admit - Decistion To Admit Decision to Admit Reason: Admit from ER Decision to Admit Date: 09/10/20 Decision to Admit Time: 19:51
[2020-09-10] MEDS ORDERED: DEXAMETHASONE INJ 10 MG/ML VIAL IV ONE (18:50)
--- NOTE | 2020-09-10 20:44 | RAD ---
EXAM: XR Chest, 1 View CLINICAL HISTORY: SOB TECHNIQUE: Frontal view of the chest. COMPARISON: 03/20/2014 FINDINGS: Lungs: Bilateral interstitial infiltrates present with mild superimposed patchy airspace consolidation in both lower lung zones. Pleural space: No pneumothorax. No pleural effusion. Heart: Stable cardiac shadow. Mediastinum: No abnormality noted. Bones/joints: No osseous destruction or sclerosis noted. IMPRESSION: Bilateral interstitial and mild patchy airspace disease. Consider pneumonia including viral etiology and alveolar edema. Electronically signed by: Fiorella Linares MD 09/10/2020 8:42 PM BUYER
[2020-09-10] MEDS ORDERED: ENOXAPARIN SODIUM 80 MG/0.8 ML SYG SUBCU ONE (21:50)
--- NOTE | 2020-09-10 22:08 | HP ---
SUPERVISING PHYSICIAN: Bennett To MD CHIEF COMPLAINT: Increasing shortness of breath. HISTORY OF PRESENT ILLNESS: Ms. Willett is an 89-year-old female who is on hospice with [facility] for end-stage congestive heart failure as a DNR. She presented to the Emergency Room with her daughter and has been complaining of several days of progressive fatigue and diarrhea. Her daughter endorses that the patient had tested positive at home by hospice on 09/10/20. Dr. To instructed the patient to go to the Emergency Room for evaluation and admission. The daughter also endorses that in the last week, she has noted that her mom had some left facial drooping, which has resolved, but due to the fact that the patient is on hospice, DNR and symptoms were remote, she was not worked up for possible stroke on this admission. Workup in the Emergency Room included CBC showing white count 4,800, D-dimer elevated at 890. Chemistries showed creatinine 3.35. Review of past records that were available at time of admission showed creatinine in the last several times in the hospital has been around 2.7. The patient was not complaining of any chest pain, no real significant shortness of breath, just a cough. Her vital signs on initial presentation to the Emergency Room showed she was saturating only 85% on room air. She was started on oxygen at 2 liters nasal cannula and was saturating 96% prior to admission. Her chest x-ray showed bilateral interstitial mild patchy airspace disease. She was started on treatment with Remdesivir and now is going to be admitted for COVID pneumonitis with developing pneumonia. PAST MEDICAL HISTORY: 1. Congestive heart failure with grade 2 diastolic dysfunction on hospice. Last echocardiogram was done in 2017 and showed estimated ejection fraction at 53%. 2. Hypertension. 3. Hyperlipidemia. 4. Previous myocardial infarction in 1999. 5. Carotid artery stenosis. 6. Coronary artery disease. 7. Peripheral vascular disease. 8. Type 2 diabetes mellitus. 9. Alzheimer's disease. 10. 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 11. Chronic anemia. PAST SURGICAL HISTORY: 1. Appendectomy. 2. Coronary artery bypass graft. 3. Cholecystectomy. 4. Coronary artery stent placements. 5. Hysterectomy. 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 HOME MEDICATIONS: Awaiting an updated list of verified medications. Please see those as they are available. ALLERGIES: NO KNOWN DRUG ALLERGIES . FAMILY HISTORY: Father secondary to stroke. Mother secondary to myocardial infarction. SOCIAL HISTORY: The patient is retired. She lives in [place]. She is . She has no history of tobacco, drug or alcohol usage. REVIEW OF SYSTEMS: CONSTITUTIONAL: Denies any fevers, chills. Positive for general malaise, fatigue. HEENT: Denies headaches, sore throats, earaches, nasal congestion, vision changes. RESPIRATORY: As noted history of present illness, a cough with associated shortness of breath. CARDIOVASCULAR: Denies chest pain, palpitations or edema. GASTROINTESTINAL: Denies nausea, vomiting, constipation or abdominal pain. GENITOURINARY: Denies dysuria, hematuria, polyuria. MUSCULOSKELETAL: Denies muscle pain, neck pain, back pain. SKIN: Denies lesions, rashes, moles or unexplained changes. NEUROLOGIC: Denies ataxia, seizures. She does have some weakness. Denies any other focal motor deficits. HEMATOLOGIC: Denies unexplained bleeding, bruising or transfusion reactions. PHYSICAL EXAMINATION: VITAL SIGNS: Temperature 98, pulse 53, blood pressure initially 193/66, saturation 85% on room air. GENERAL: The patient looks to be comfortably in no acute distress. She is alert. HEENT: Tympanic membranes clear bilaterally. Oropharynx is pink, moist without any lesions. NECK: Supple, nontender with full range of motion. No jugular venous distention noted. RESPIRATORY: Lung sounds with some mild crackles and rales heard throughout. She is hypoxic on room air and improves with oxygen. CARDIOVASCULAR: Regular rate and rhythm without any appreciable murmurs, gallops, or rubs. ABDOMEN: Soft, nontender. Positive bowel sounds. BACK: No CVA or vertebral tenderness. EXTREMITIES: There is no cyanosis, clubbing or edema. NEUROLOGIC: Cranial nerves II-XII are grossly intact. Facial features are symmetrical. Extraocular movements are within normal limits. There is no nystagmus noted. The patient is alert and oriented times three. SKIN: Warm, pink and dry. LABORATORY: White count 4,800, hemoglobin 12.1, hematocrit 37.0, platelet count 217,000. Differential is without a left shift. Coagulation studies show D- dimer 890. Chemistries show sodium 131, potassium 4.9, BUN 75, creatinine 3.35, blood sugar 110, magnesium 2.3, ferritin 410, CK 264, troponin 0.03, BNP 1150, C-reactive protein elevated at 5. MICROBIOLOGY: No specimens submitted. RADIOLOGY: Single view chest x-ray per radiologic interpretation showed bilateral interstitial mild patchy airspace disease. ASSESSMENT: 1. COVID pneumonitis with developing pneumonia. 2. Bilateral pneumonia, secondary to #1, community acquired. 3. 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 4. Acute renal failure related to mild dehydration with prerenal azotemia, complicated by developing pneumonia. 5. History of hypertension. 6. Hyperlipidemia. 7. Previous myocardial infarctions. 8. 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 9. Coronary artery stenosis. 10. Coronary artery disease. 11. Peripheral vascular disease. 12. Type 2 diabetes mellitus. 13. Alzheimer's disease. 14. Chronic anemia. PLAN: Ms. Willett is going to be admitted for treatment of COVID pneumonia. We will start her on antibiotics with Rocephin and azithromycin. We will continue with Decadron, Remdesivir. She will be on Protonix, Align and Mucinex. She will have albuterol inhaler as needed with aggressive pulmonary hygiene. I anticipate her length of stay to be at least 2 to 3 days. We will keep her on oxygen as needed and maintain her O2 saturations greater than 94%. She will be on DVT prophylaxis with Lovenox, renally doses. Given the fact that she is end- stage congestive heart failure, we will hold off on any fluid management at this point even though she does have significantly elevated creatinine. 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 She is certainly is at risk for acute deterioration. We will continue to monitor and treat until we can transition her to outpatient management. Until then, we will continue to provide treatment for underlying COVID pneumonia. [facility][id number] [facility]
[2020-09-10] MEDS ORDERED: SODIUM CHLORIDE 0.9% (FLUSH) 10 ML SYG IV PRN (22:42)
[2020-09-10] MEDS ORDERED: ACETAMINOPHEN 325 MG TAB PO PRN (22:42)
[2020-09-10] MEDS ORDERED: ONDANSETRON INJ 4 MG/2 ML VIAL IV PRN (22:42)
[2020-09-10] MEDS ORDERED: ALBUTEROL INHALER 64 PUFF/8GM INH PRN (22:46)
[2020-09-10] MEDS ORDERED: REMDESIVIR 200 MG in SODIUM CHLORIDE 0.9% 250ML 250 ML IVPB ONE (22:46)
[2020-09-10] MEDS ORDERED: AZITHROMYCIN IV 500 MG VIAL IVPB ONE (22:52)
[2020-09-10] MEDS ORDERED: cefTRIAXone SODIUM 1 GM VIAL ONE (22:52)
[2020-09-10] MEDS ORDERED: SODIUM CHLORIDE 0.9% 250ML 250 ML ONE (22:52)
[2020-09-10] MEDS ORDERED: REMDESIVIR IV 100 MG VIAL ONE ×2 (22:53)
[2020-09-10] MEDS ORDERED: SODIUM CHL 0.9% 50ML MIN-BAG+ 50 ML IVPB ONE (22:53)
[2020-09-10] MEDS: cefTRIAXone SODIUM 1 GM in SODIUM CHL 0.9% 50ML MIN-BAG+ 50 ML IVPB SCH (22:57)
[2020-09-10] MEDS: IV SET AND CAP CHANGE INJ INJ SCH (22:57)
[2020-09-10] MEDS: AZITHROMYCIN IV 500 MG in SODIUM CHLORIDE 0.9% 250ML 250 ML IVPB SCH (23:30)
[2020-09-11] MEDS ORDERED: HYDROcodone 10MG/APAP 325MG 1 EA TAB PO PRN (01:37)
[2020-09-11] MEDS ORDERED: PANTOPRAZOLE SODIUM IV 40 MG VIAL IV SCH (06:30)
--- NOTE | 2020-09-11 07:25 | RAD ---
EXAM DESCRIPTION: Chest,1 View CLINICAL HISTORY: 89 years Female, COVID PNA COMPARISON: September 10, 2020 TECHNIQUE: AP portable chest. FINDINGS: Slightly improved expansion and aeration of the lungs is evident in comparison to previous day's study. Patchy groundglass opacity and subsolid infiltrative changes in the right infrahilar region and perihilar region noted with less dense opacification in the left lung. Coarsened interstitial markings noted. Moderate cardiomegaly with previous sternotomy. Tiny amount of haziness at the lung bases suggests minimal minimal pleural effusions and may relate be related to early volume overload. No gross bony, hilar, or mediastinal abnormalities are noted. IMPRESSION: Slightly improved expansion and aeration of the lungs with persistent mixed groundglass opacities in the right mid and lower lung field and diffuse coarsened interstitial markings and vascular prominence suggesting borderline vascular congestion. Electronically signed by: Mil Burgess MD 09/11/2020 7:23 AM CONTINUOUS DRIER OPERATOR
[2020-09-11] MEDS ORDERED: METOPROLOL SUCCINATE XL 100 MG TAB PO ONE (07:59)
[2020-09-11] MEDS ORDERED: REMDESIVIR IV 100 MG VIAL ONE (08:00)
[2020-09-11] MEDS ORDERED: SODIUM CHLORIDE 0.9% 250ML 250 ML ONE (08:00)
[2020-09-11] MEDS: ALBUTEROL INHALER 64 PUFF/8GM INH SCH ×4 (08:03→20:50)
[2020-09-11] MEDS: CETIRIZINE HCL 10 MG TAB PO SCH (08:07)
[2020-09-11] MEDS: FUROSEMIDE 40 MG TAB PO SCH (08:07)
[2020-09-11] MEDS: amLODIPine BESYLATE 5 MG TAB PO SCH (08:07)
[2020-09-11] MEDS: REMDESIVIR 100 MG in SODIUM CHLORIDE 0.9% 250ML 250 ML IVPB SCH (08:07)
[2020-09-11] MEDS: BIFIDOBACTERIUM INFANTIS 4 MG CAP PO SCH (08:07)
[2020-09-11] MEDS: ASPIRIN (ENTERIC COATED) 81 MG TAB PO SCH (08:08)
[2020-09-11] MEDS: DEXAMETHASONE INJ 10 MG/ML VIAL IV SCH (08:08)
[2020-09-11] MEDS: CYANOCOBALAMIN 1,000 MCG TAB PO SCH (08:08)
[2020-09-11] MEDS: guaiFENesin ER TAB 600 MG TAB PO SCH ×2 (08:08→20:07)
[2020-09-11] MEDS ORDERED: METOPROLOL SUCCINATE 200 MG PO SCH (09:00)
[2020-09-11] MEDS ORDERED: LEVOTHYROXINE SODIUM 0.025 MG TAB PO SCH (09:00)
[2020-09-11] MEDS ORDERED: SODIUM CHLORIDE 0.9% 500ML 500 ML IVS ONE (10:04)
[2020-09-11] MEDS: CALCIUM CARBONATE-VITAMIN D 500 MG TAB PO SCH (10:07)
[2020-09-11] MEDS: LOSARTAN POTASSIUM 100 MG TAB PO SCH (10:07)
[2020-09-11] MEDS ORDERED: SODIUM CHLORIDE 0.9% 500ML 500 ML ONE (10:09)
--- NOTE | 2020-09-11 14:46 | PN ---
SUPERVISING PHYSICIAN: Bennett To MD DATE: 09/11/20 SUBJECTIVE: The patient is sitting up in bed. She is slightly confused. Her nurse is at the bedside with her. There were no reports from nursing of any problems overnight. The patient has no complaints. OBJECTIVE: VITAL SIGNS: Temperature 98.2, heart rate 55, blood pressure 167/65, respiratory rate 18, O2 saturation 91% on 2 liters nasal cannula. RESPIRATORY: Diminished breath sounds throughout. CARDIAC: Regular rate and rhythm. At times, she is slightly bradycardic. NEUROLOGIC: Awake and alert. LABORATORY: WBCs 1,600, hemoglobin 11.8, hematocrit 35.7. D-dimer 709, fibrinogen 398. Sodium 133, potassium 5.3, chloride 102, BUN 82, creatinine 3.39, calcium 8.2, magnesium 2.3, LD 234, C-reactive protein 4.3. RADIOLOGY: Chest x-ray shows slightly improved expansion and aeration of the lungs with persistent mixed ground glass opacities in the right mid and lower lung maxwell and diffuse coarse interstitial markings and vascular prominence suggesting borderline vascular congestion. All other labs and films have been reviewed via the EMR. ASSESSMENT: 1. COVID-19 pneumonitis with developing pneumonia. 2. Bilateral pneumonia, secondary to #1, community acquired. 3. 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 4. Acute renal failure related to mild dehydration. 5. History of hypertension. 6. Hyperlipidemia. 7. Previous myocardial infarctions. 8. 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 9. Coronary artery stenosis. 10. Coronary artery disease. 11. Peripheral vascular disease. 12. Type 2 diabetes mellitus. 13. Alzheimer's disease. 14. Chronic anemia. PLAN: We will continue present supportive care including the COVID guidelines. Her renal function has somewhat worsened, so I will give her a judicious amount of fluids overnight and recheck her labs in the morning. She will continue on the COVID medications as well as aggressive pulmonary hygiene. Lab and chest x- ray will be ordered for tomorrow. We will continue to monitor the patient closely and follow as needed. #[id number] [facility]
[2020-09-11] MEDS ORDERED: ENOXAPARIN SODIUM 30 MG/0.3 ML SYG SUBCU ONE (19:33)
[2020-09-11] MEDS ORDERED: GABAPENTIN 300 MG CAP ONE (19:33)
[2020-09-11] MEDS ORDERED: DONEPEZIL HCL 5 MG TAB ONE (19:33)
[2020-09-11] MEDS: DONEPEZIL HCL 5 MG TAB PO SCH (20:06)
[2020-09-11] MEDS: GABAPENTIN 300 MG CAP PO SCH (20:06)
[2020-09-11] MEDS: ACETAMINOPHEN 325 MG TAB PO SCH (20:06)
[2020-09-11] MEDS: ENOXAPARIN SODIUM 30 MG/0.3 ML SYG SUBCU SCH (20:07)
[2020-09-11] MEDS: cefTRIAXone SODIUM 1 GM in SODIUM CHL 0.9% 50ML MIN-BAG+ 50 ML IVPB SCH (22:19)
[2020-09-11] MEDS: AZITHROMYCIN IV 500 MG in SODIUM CHLORIDE 0.9% 250ML 250 ML IVPB SCH (23:12)
[2020-09-12] MEDS ORDERED: PANTOPRAZOLE SODIUM TAB 40 MG PO ONE ×2 (04:42→05:06)
[2020-09-12] MEDS ORDERED: LEVOTHYROXINE SODIUM 0.025 MG TAB ONE (04:43)
[2020-09-12] MEDS: LEVOTHYROXINE SODIUM 0.025 MG TAB PO SCH (05:51)
[2020-09-12] MEDS: PANTOPRAZOLE SODIUM TAB 40 MG PO SCH (05:51)
--- NOTE | 2020-09-12 06:28 | RAD ---
EXAM: XR Chest, 1 View CLINICAL HISTORY: COVID PNA TECHNIQUE: Frontal view of the chest. COMPARISON: 09/11/2020 FINDINGS: Lungs: Worsening bilateral groundglass and airspace infiltrates in both lungs. Pleural space: No pneumothorax. No pleural effusion. Heart: Stable cardiac enlargement. Mediastinum: No abnormality noted. Bones/joints: No osseous destruction or sclerosis noted. IMPRESSION: Worsening covid pneumonia. Electronically signed by: Fiorella Linares MD 09/12/2020 6:27 AM MEDICAL BILL PROCESSOR
[2020-09-12] MEDS ORDERED: METOPROLOL SUCCINATE XL 100 MG TAB PO ONE (07:36)
[2020-09-12] MEDS: amLODIPine BESYLATE 5 MG TAB PO SCH (08:09)
[2020-09-12] MEDS: ASPIRIN (ENTERIC COATED) 81 MG TAB PO SCH (08:09)
[2020-09-12] MEDS: CYANOCOBALAMIN 1,000 MCG TAB PO SCH (08:09)
[2020-09-12] MEDS: DEXAMETHASONE INJ 10 MG/ML VIAL IV SCH (08:09)
[2020-09-12] MEDS: CETIRIZINE HCL 10 MG TAB PO SCH (08:09)
[2020-09-12] MEDS: guaiFENesin ER TAB 600 MG TAB PO SCH ×2 (08:09→20:28)
[2020-09-12] MEDS: FUROSEMIDE 40 MG TAB PO SCH (08:09)
[2020-09-12] MEDS: LOSARTAN POTASSIUM 100 MG TAB PO SCH (08:10)
[2020-09-12] MEDS: CALCIUM CARBONATE-VITAMIN D 500 MG TAB PO SCH (08:10)
[2020-09-12] MEDS: BIFIDOBACTERIUM INFANTIS 4 MG CAP PO SCH (08:11)
[2020-09-12] MEDS: METOPROLOL SUCCINATE XL 100 MG TAB PO SCH (08:11)
[2020-09-12] MEDS: REMDESIVIR 100 MG in SODIUM CHLORIDE 0.9% 250ML 250 ML IVPB SCH (08:11)
[2020-09-12] MEDS: ALBUTEROL INHALER 64 PUFF/8GM INH SCH ×4 (09:30→20:20)
[2020-09-12] MEDS: ACETAMINOPHEN 325 MG TAB PO SCH (20:24)
[2020-09-12] MEDS: DONEPEZIL HCL 5 MG TAB PO SCH (20:28)
[2020-09-12] MEDS: ENOXAPARIN SODIUM 30 MG/0.3 ML SYG SUBCU SCH (20:28)
[2020-09-12] MEDS: GABAPENTIN 300 MG CAP PO SCH (20:28)
[2020-09-12] MEDS: cefTRIAXone SODIUM 1 GM in SODIUM CHL 0.9% 50ML MIN-BAG+ 50 ML IVPB SCH (21:44)
[2020-09-12] MEDS: AZITHROMYCIN IV 500 MG in SODIUM CHLORIDE 0.9% 250ML 250 ML IVPB SCH (22:19)
--- NOTE | 2020-09-12 22:27 | PN ---
SUPERVISING PHYSICIAN: Bennett To M.D. DATE: 09/12/20 SUBJECTIVE: The patient is lying in bed. She awakens easily. She has no complaints, except continued weakness. Nursing reports she has had no problems overnight. OBJECTIVE: VITAL SIGNS: Temperature 97.4, heart rate 53, blood pressure 187/83, respiratory rate 16, O2 saturation 92% on 2.5 liters nasal cannula. RESPIRATORY: Diminished at the bases, otherwise clear to auscultation. CARDIAC: Regular rate and rhythm. NEUROLOGIC: She is awake and alert. LABORATORY: CBC is unremarkable except there is a slight left shift on her differential. Fibrinogen 378 with a D-dimer of 518. Sodium 134, potassium 5, chloride 104, BUN 93, creatinine 3.43, calcium 8.4, magnesium 2.2. LD is 287, CRP 3.1. Chest x-ray shows worsening COVID pneumonia. All other labs and films have been reviewed via the EMR. ASSESSMENT: 1. COVID-19 pneumonitis with developing pneumonia. 2. Bilateral pneumonia, secondary to #1, community acquired. 3. 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 4. Acute renal failure related to mild dehydration. 5. History of hypertension. 6. Hyperlipidemia. 7. Previous myocardial infarctions. 8. 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 9. Coronary artery stenosis. 10. Coronary artery disease. 11. Peripheral vascular disease. 12. Type 2 diabetes mellitus. 13. Alzheimer's disease. 14. Chronic anemia. PLAN: We will continue present supportive care following the COVID-19 guidelines. I will repeat her chest x-ray and her lab in the morning. Due to her co-morbidities, I am not sure where her baseline should be. We may need to discharge her based on her clinical improvement. Hopefully she can be discharged back to hospice in the next 24 to 48 hours. Will continue to monitor and treat as needed. #[id number] [facility]
[2020-09-13] MEDS: PANTOPRAZOLE SODIUM TAB 40 MG PO SCH (06:12)
[2020-09-13] MEDS: LEVOTHYROXINE SODIUM 0.025 MG TAB PO SCH (06:12)
--- NOTE | 2020-09-13 08:52 | RAD ---
EXAM: XR Chest, 1 View CLINICAL HISTORY: COVID PNA TECHNIQUE: Frontal view of the chest. COMPARISON: 09/12/2020 FINDINGS: Lungs: Stable bilateral interstitial and airspace consolidation. Pleural space: No pneumothorax. No pleural effusion. Heart: Stable cardiac enlargement. Mediastinum: No abnormality noted. Bones/joints: No osseous destruction or sclerosis noted. IMPRESSION: Stable abnormalities as above. Electronically signed by: Fiorella Linares MD 09/13/2020 8:50 AM CURVE SAW OPERATOR
[2020-09-13] MEDS: ALBUTEROL INHALER 64 PUFF/8GM INH SCH ×3 (09:00→21:23)
[2020-09-13] MEDS ORDERED: SODIUM BICARBONATE VIAL 75 MEQ in DEXTROSE 5% 1000ML 1,000 ML IVS ONE (09:29)
[2020-09-13] MEDS: CETIRIZINE HCL 10 MG TAB PO SCH (10:21)
[2020-09-13] MEDS: CALCIUM CARBONATE-VITAMIN D 500 MG TAB PO SCH (10:21)
[2020-09-13] MEDS: guaiFENesin ER TAB 600 MG TAB PO SCH ×2 (10:21→21:32)
[2020-09-13] MEDS: BIFIDOBACTERIUM INFANTIS 4 MG CAP PO SCH (10:21)
[2020-09-13] MEDS: LOSARTAN POTASSIUM 100 MG TAB PO SCH (10:21)
[2020-09-13] MEDS: ASPIRIN (ENTERIC COATED) 81 MG TAB PO SCH (10:21)
[2020-09-13] MEDS: REMDESIVIR 100 MG in SODIUM CHLORIDE 0.9% 250ML 250 ML IVPB SCH (10:21)
[2020-09-13] MEDS: METOPROLOL SUCCINATE XL 100 MG TAB PO SCH (10:21)
[2020-09-13] MEDS: CYANOCOBALAMIN 1,000 MCG TAB PO SCH (10:22)
[2020-09-13] MEDS: DEXAMETHASONE INJ 10 MG/ML VIAL IV SCH (10:22)
[2020-09-13] MEDS: FUROSEMIDE 40 MG TAB PO SCH (10:22)
[2020-09-13] MEDS: amLODIPine BESYLATE 5 MG TAB PO SCH (10:22)
[2020-09-13] MEDS ORDERED: DEXTROSE 5% 1000ML 1,000 ML IVS ONE (11:44)
[2020-09-13] MEDS ORDERED: SODIUM BICARBONATE VIAL 50 MEQ/50 ML VIAL ONE (11:44)
[2020-09-13] MEDS: ACETAMINOPHEN 325 MG TAB PO SCH (21:32)
[2020-09-13] MEDS: DONEPEZIL HCL 5 MG TAB PO SCH (21:32)
[2020-09-13] MEDS: GABAPENTIN 300 MG CAP PO SCH (21:32)
[2020-09-13] MEDS: ENOXAPARIN SODIUM 30 MG/0.3 ML SYG SUBCU SCH (21:32)
[2020-09-13] MEDS: cefTRIAXone SODIUM 1 GM in SODIUM CHL 0.9% 50ML MIN-BAG+ 50 ML IVPB SCH (21:33)
[2020-09-13] MEDS: AZITHROMYCIN IV 500 MG in SODIUM CHLORIDE 0.9% 250ML 250 ML IVPB SCH (22:48)
[2020-09-13] MEDS: IV SET AND CAP CHANGE INJ INJ SCH (22:48)
[2020-09-14] MEDS: LEVOTHYROXINE SODIUM 0.025 MG TAB PO SCH (05:37)
[2020-09-14] MEDS: PANTOPRAZOLE SODIUM TAB 40 MG PO SCH (05:37)
[2020-09-14] MEDS: ALBUTEROL INHALER 64 PUFF/8GM INH SCH ×2 (08:00→11:24)
[2020-09-14] MEDS: amLODIPine BESYLATE 5 MG TAB PO SCH (09:50)
[2020-09-14] MEDS: BIFIDOBACTERIUM INFANTIS 4 MG CAP PO SCH (09:50)
[2020-09-14] MEDS: FUROSEMIDE 40 MG TAB PO SCH (09:50)
[2020-09-14] MEDS: METOPROLOL SUCCINATE XL 100 MG TAB PO SCH (09:50)
[2020-09-14] MEDS: CYANOCOBALAMIN 1,000 MCG TAB PO SCH (09:50)
[2020-09-14] MEDS: LOSARTAN POTASSIUM 100 MG TAB PO SCH (09:50)
[2020-09-14] MEDS: ASPIRIN (ENTERIC COATED) 81 MG TAB PO SCH (09:50)
[2020-09-14] MEDS: CETIRIZINE HCL 10 MG TAB PO SCH (09:50)
[2020-09-14] MEDS: REMDESIVIR 100 MG in SODIUM CHLORIDE 0.9% 250ML 250 ML IVPB SCH (09:50)
[2020-09-14] MEDS: DEXAMETHASONE INJ 10 MG/ML VIAL IV SCH (09:50)
[2020-09-14] MEDS: guaiFENesin ER TAB 600 MG TAB PO SCH (09:50)
[2020-09-14] MEDS: CALCIUM CARBONATE-VITAMIN D 500 MG TAB PO SCH (10:00)
--- NOTE | 2020-09-14 10:06 | PN ---
SUPERVISING PHYSICIAN: Bennett To M.D. DATE: 09/13/20 SUBJECTIVE: The patient is sitting up in bed. She is eating her meal. She has no complaints and would like to go home. She denies nausea or vomiting. Nursing reports the patient had no issues overnight. OBJECTIVE: VITAL SIGNS: Temperature 97.8, heart rate 59, blood pressure 187/69, respiratory rate 20, O2 saturation 91% on 1.5 liters nasal cannula. RESPIRATORY: Diminished at the bases, otherwise clear to auscultation. CARDIAC: Regular rate and rhythm. NEUROLOGIC: She is awake and alert, somewhat depressed. LABORATORY: WBC 8,300 with hemoglobin 11.1, hematocrit 33.4. She has a left shift on her differential. Fibrinogen 378 with a D-dimer of 376. Sodium 133, potassium 5.1, chloride 105, BUN 102, creatinine 3.54, calcium 8.2, magnesium 2.2. LD is 263, CRP 2.2. Chest x-ray shows stable bilateral interstitial and airspace consolidation. ASSESSMENT: 1. COVID-19 pneumonitis with developing pneumonia. 2. Bilateral pneumonia, secondary to #1, community acquired. 3. 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 4. Acute renal failure related to mild dehydration. 5. History of hypertension. 6. Hyperlipidemia. 7. Previous myocardial infarctions. 8. 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 9. Coronary artery stenosis. 10. Coronary artery disease. 11. Peripheral vascular disease. 12. Type 2 diabetes mellitus. 13. Alzheimer's disease. 14. Chronic anemia. PLAN: We will continue present supportive care. At this point, since her renal followup has worsened, I will give her some bicarb overnight. We will recheck her labs in the morning. She will most likely be discharged to [facility] if clinically stable. She will need to go home on and we will monitor and treat as needed. #[id number] [facility]
[2020-09-14 13:59] VITALS: BP 185/84; TEMP 97.5; O2SAT 95
--- NOTE | 2020-09-26 11:33 | DS ---
SUPERVISING PHYSICIAN: Bennett To MD DISCHARGE DIAGNOSIS: 1. COVID-19 pneumonitis. 2. Bilateral pneumonia, secondary to #1, community acquired. 3. 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 4. Acute renal failure secondary to mild dehydration. 5. History of hypertension. 6. Hyperlipidemia. 7. Previous myocardial infarctions. 8. 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 9. Carotid artery stenosis. 10. Coronary artery disease. 11. Peripheral vascular disease. 12. Type 2 diabetes mellitus. 13. Alzheimer's disease. 14. Chronic anemia. HISTORY OF PRESENT ILLNESS: This is an 89-year-old female who has been on hospice with [facility] for end-stage congestive heart failure. She is a DNR. She came to the Emergency Room with her daughter and complaining of several days of progressive fatigue and diarrhea. She had tested positive for COVID at home by hospice. Dr. To, her primary care physician, instructed the patient to go to the Emergency Room for evaluation and admission. The daughter also noted that her mom had had some left facial drooping, which has resolved. Due to the fact that the patient is on hospice, DNR and the remote possibility of a stroke in spite of her symptoms resolving, she did not get a workup in the ER. CBC showed white count 4,800, D-dimer elevated at 890. Creatinine 3.35. Her baseline is about 2.7. She did complain of a cough, but no real significant shortness of breath. Her O2 saturation on room air was 85%. She was placed on oxygen and her O2 saturation came up to 96%. Her chest x-ray showed bilateral interstitial mild patchy airspace disease. She was admitted to the hospital for treatment of COVID-19 pneumonitis. HOSPITAL COURSE: The patient was admitted to the hospital and started on COVID- 19 guidelines including Remdesivir, azithromycin, Rocephin, Decadron. She was given Align, Protonix and Mucinex. She was given Lovenox for DVT prophylaxis. Her labs and films were followed per the guidelines. Over the next few days, her labs stabilized and her oxygen was titrated down as tolerated. She did have to remain on oxygen most of the time, but all her symptoms improved. She did get judicious fluids several times due to her renal failure with very little improvement. Her COVID symptoms mostly resolved. The patient will most likely need oxygen and [facility] has been informed that the patient may need oxygen at discharge. She will be discharged home in stable condition under [facility]. LABORATORY: WBCs dropped to 1.6 and are now 8.3 with hemoglobin and hematocrit stable at 11.1 and 33.4. D-dimer went as high as 1,090 and is now 376. Fibrinogen was up to 440 and is now 378. Her sodium is slightly low at 129 with a potassium of 5.3. Her chloride is 100. BUN 115, creatinine 3.36. C-reactive protein is 2.2. RADIOLOGY: Final chest x-ray shows stable chest x-ray. DISCHARGE PLAN: The patient will be discharged home to in-home hospice services per [facility]. She is in fair condition. She is to resume her previous diet and increase her activity as tolerated. She is to followup with Dr. To as needed. In addition to her routine medications, she is to continue with Align, dexamethasone, cefdinir, albuterol inhaler and azithromycin. She is to return to the hospital or followup with Dr. To for any problems or complications. DISCHARGE MEDICATIONS: 1. Metoprolol. 2. Calcium/vitamin D. 3. Aspirin. 4. Omeprazole. 5. Benicar. 6. Amlodipine. 7. Cyanocobalamin. 8. Acetaminophen. 9. Morphine oral concentrate. 10. Lorazepam. 11. Zofran. 12. Hydrocodone. 13. Gabapentin. 14. Cetirizine. 15. Furosemide. 16. Levothyroxine. 17. Align. 18. Decadron. 19. Cefdinir. 20. Albuterol. 21. Azithromycin. [facility][id number] [facility]
== END 2020-09-14 14:00 | disposition hospice, home (50) | DRG 177 ==
LOC: ER 18:22 → OBSVTOIN 22:07 → MS 22:07
PROVIDERS: ADMIT Nurse Practitioner Family; ATTEND Nurse Practitioner Acute Care
PROC: XW033E5 Introduction of Remdesivir Anti-infective into Peripheral Vein, Percutaneous Approach, New Technology Group 5 (ICD-10-PCS; principal; 2020-09-10)
DX: U07.1 COVID-19 (principal); J12.82 Pneumonia due to coronavirus disease 2019; N17.9 Acute kidney failure, unspecified; I50.32 Chronic diastolic (congestive) heart failure; Z66 Do not resuscitate; I11.0 Hypertensive heart disease with heart failure; E78.5 Hyperlipidemia, unspecified; I25.10 Atherosclerotic heart disease of native coronary artery without angina pectoris; E11.51 Type 2 diabetes mellitus with diabetic peripheral angiopathy without gangrene; Z51.5 Encounter for palliative care; I50.84 End stage heart failure; D64.9 Anemia, unspecified; E86.0 Dehydration; G30.9 Alzheimer's disease, unspecified; F02.80 Dementia in other diseases classified elsewhere, unspecified severity, without behavioral disturbance, psychotic disturbance, mood disturbance, and anxiety; Z79.82 Long term (current) use of aspirin; Z95.1 Presence of aortocoronary bypass graft; Z86.73 Personal history of transient ischemic attack (TIA), and cerebral infarction without residual deficits; Z95.5 Presence of coronary angioplasty implant and graft